=== PATIENT | male | born 1980 | race Caucasian/White ===

== ENCOUNTER 2016-08-04 09:11 | Emergency (ER) | payer SELFPAY ==
[~2016-08-04] VITALS: Ht 175.3 cm; Wt 78.0 kg
[~2016-08-04 09:11] MED LIST: BACT800T5 PO; DOXY100T PO
[2016-08-04 09:21] VITALS: BP 151/98; PULSE 112; RESP 18; TEMP 97.9; O2SAT 97
--- NOTE | 2016-08-04 09:48 | PD ---
HPI Chief Complaint: Cold / Flu Symptoms Time Seen by Provider: 09:45 Travel History International Travel<30 days: No Contact w/Intl Traveler<30days: No Traveled to known affect area: No History of Present Illness HPI Patient presents with complaints of cough, malaise and subjective fever for 2 days. He did not receive a flu shot. Denies any nausea vomiting or diarrhea. No new rashes. No sick contacts. He is a smoker but denies lung disease. PFSH Past Medical History Medical History: Denies Significant Hx Hx Anticoagulant Therapy: No Cardiovascular Problems: Yes (htn) Diabetes: Yes Patient Takes Glucophage: No Diminished Hearing: No Kidney Stones: Yes Immunizations Current: Yes Influenza Vaccination: No Social History Alcohol Use: No Tobacco Use: Yes (CIGARETTES, 1/2 PPD X 12 YEARS) Substance Use: No Allergies-Medications (Allergen,Severity, Reaction): Coded Allergies: No Known Allergies (Verified , 08/04/16) Reported Meds & Prescriptions Reported Meds & Active Scripts Active No Active Prescriptions or Reported Medications Review of Systems General / Constitutional: Positive: Fever, Chills Eyes: No: Visual changes HENT: No: Headaches Cardiovascular: No: Chest Pain or Discomfort Respiratory: Positive: Cough, No: Shortness of Breath Gastrointestinal: No: Abdominal Pain Genitourinary: No: Dysuria Musculoskeletal: No: Pain Skin: No Rash Neurologic: No: Weakness Psychiatric: No: Depression Endocrine: No: Polydipsia Hematologic/Lymphatic: No: Easy Bruising Physical Exam Narrative GENERAL: Well-nourished, well-developed patient. SKIN: Warm and dry. HEAD: Normocephalic. EYES: No scleral icterus. No injection or drainage. Left external canal and TM are visualized and normal, right external canal is erythematous edematous TM is normal NECK: Supple, trachea midline. No JVD or lymphadenopathy. CARDIOVASCULAR: Regular rate and rhythm without murmurs, gallops, or rubs. RESPIRATORY: Breath sounds coarse bilateral bases. No accessory muscle use. GASTROINTESTINAL: Abdomen soft, non-tender, nondistended. MUSCULOSKELETAL: No cyanosis, or edema. BACK: Nontender without obvious deformity. No CVA tenderness. Data Data Last Documented VS Vital Signs Date Time Temp Pulse Resp B/P Pulse Ox O2 Delivery O2 Flow Rate FiO2 08/04/16 09:21 97.9 112 18 151/98 97 Orders Influenzae A/B Antigen (2/5/17 09:48) Complete Blood Count With Diff (08/04/16 10:28) Chest, Single Ap (08/04/16 ) Ceftriaxone Inj (Rocephin Inj) (08/04/16 10:45) Azithromycin Inj (Zithromax Inj) (08/04/16 10:45) Ketorolac Inj (Toradol Inj) (08/04/16 11:00) Labs Laboratory Tests Test 08/04/16 10:34 White Blood Count 15.8 TH/MM3 Red Blood Count 5.26 MIL/MM3 Hemoglobin 14.2 GM/DL Hematocrit 41.9 % Mean Corpuscular Volume 79.7 FL Mean Corpuscular Hemoglobin 27.0 PG Mean Corpuscular Hemoglobin 33.9 % Concent Red Cell Distribution Width 13.0 % Platelet Count 176 TH/MM3 Mean Platelet Volume 9.5 FL Neutrophils (%) (Auto) 84.3 % Lymphocytes (%) (Auto) 7.9 % Monocytes (%) (Auto) 5.1 % Eosinophils (%) (Auto) 0.2 % Basophils (%) (Auto) 2.5 % Neutrophils # (Auto) 13.4 TH/MM3 Lymphocytes # (Auto) 1.2 TH/MM3 Monocytes # (Auto) 0.8 TH/MM3 Eosinophils # (Auto) 0.0 TH/MM3 Basophils # (Auto) 0.4 TH/MM3 CBC Comment DIFF FINAL Differential Comment MDM Medical Decision Making Medical Screen Exam Complete: Yes Emergency Medical Condition: Yes Differential Diagnosis COPD exacerbation, bronchitis, influenza Narrative Course Assessment and plan discussed with patient at bedside Diagnosis Primary Impression: COPD exacerbation Additional Impression: Right otitis externa Qualified Code: H60.391 - Other infective acute otitis externa of right ear Patient Instructions: General Instructions Additional Instructions: Rest fluids and Motrin, Medications as prescribed, encouraged smoking cessation , follow-up with PCP to assess progress Med/Other Pt SpecificInfo: Prescription(s) given Scripts Yerbuavo-Onwaqmsvo-CJ Otic Drops (Cortisporin HC Otic Drops)3.5-10,000-1 Mg- Units-% Soln4 Drop RIGHT EAR QID #1 BOTTLE Ref 0 Prov:Magdaleno Patrick MD 08/04/16 Prednisone (21) 10 mg tab Dose Pack 10 Mg Pack10 Mg PO DIRECTED #1 DSPK Ref 0 Prov:Magdaleno Patrick MD 08/04/16 Guaifenesin-Codeine Liq (Cheratussin AC Liq)100-10 Mg/5 Ml Syrp10 Ml PO Q4H PRN (COUGH AND COLD SYMPTOMS) #120 ML Ref 0 Do not exceed 6 doses/24 hrs. Prov:Magdaleno Patrick MD 08/04/16 Azithromycin (Zithromax)500 Mg Qhy893 Mg PO DAILY #7 TAB Ref 0 Prov:Magdaleno Patrick MD 08/04/16 Disposition: 01 DISCHARGE HOME Condition: Good Magdaleno Patrick MD Aug 04, 2016 09:47
[2016-08-04 10:38] LABS: AUTOMATED NEUTROPHIL # 13.4 TH/MM3 (1.8-7.7); BASOPHIL # 0.4 TH/MM3 (0-0.2); BASOPHIL % 2.5 % (0.0-2.0); EOSINOPHIL % 0.2 % (0.0-4.0); HEMATOCRIT 41.9 % (39.0-51.0); HEMO FLAGS DIFF FINAL; LYMPH % 7.9 % (9.0-44.0); LYMPHOCYTE # 1.2 TH/MM3 (1.0-4.8); MEAN CELL VOLUME 79.7 FL (80.0-100.0); MEAN CORPUSCULAR HGB CONC 33.9 % (32.0-36.0); MONO % 5.1 % (0.0-8.0); NEUT % 84.3 % (16.0-70.0); PLATELET COUNT 176 TH/MM3 (150-450); RED BLOOD COUNT 5.26 MIL/MM3 (4.50-5.90); WHITE BLOOD COUNT 15.8 TH/MM3 (4.0-11.0)
[2016-08-04] MEDS ORDERED: AZITHROMYCIN INJ 500 MG in SODIUM CHLOR 0.9% 250 ML INJ 250 ML IV ONE (10:45)
[2016-08-04] MEDS ORDERED: cefTRIAXone INJ 1,000 MG in SODIUM CHLORIDE 0.9% INJ 100 ML IV ONE (10:45)
[2016-08-04] MEDS ORDERED: KETOROLAC TROMETHAMINE 30 MG/ML (IVP) VIAL IV PUSH ONE (11:00)
--- NOTE | 2016-08-04 11:03 | RADHPO ---
EXAM DATE/TIME: 08/04/2016 10:50 [facility] COMPARISON: CHEST SINGLE AP, May 09, 2012, 4:05. INDICATIONS : Congestion, fever and cough. MEDICAL HISTORY : None. SURGICAL HISTORY : None. ENCOUNTER: Initial ACUITY: 1 day PAIN SCORE: 10/10 LOCATION: Bilateral chest FINDINGS: A single view of the chest demonstrates the lungs to be symmetrically aerated without evidence of mas s, infiltrate or effusion. The cardiomediastinal contours are unremarkable. Osseous structures are intact. CONCLUSION: No acute disease. Anson Soto MD on August 04, 2016 at 10:59 Board Certified Radiologist. This report was verified electronically.
[2016-08-04] MEDS ORDERED: CORT1SOL RIGHT EAR (11:30)
[2016-08-04] MEDS ORDERED: PRED10PA PO (11:30)
[2016-08-04] MEDS ORDERED: ZITH500T PO (11:30)
[2016-08-04] MEDS ORDERED: CHERSYP2 PO (11:30)
[2016-08-04 12:34] VITALS: BP 138/87; PULSE 105; RESP 18; TEMP 99.3; O2SAT 94
[2016-08-04] MEDS ORDERED: methylPREDNISolone SOD SUCC 125 MG/2 ML VIAL IV PUSH ONE (13:00)
[2016-08-04] MEDS ORDERED: SODIUM CHLORID 0.9% 500 ML INJ 500 ML IV ONE (13:00)
== END 2016-08-04 13:44 | disposition home or self-care (01) ==
LOC: PHED 09:11
DX: J44.1 Chronic obstructive pulmonary disease with (acute) exacerbation (principal); H60.91 Unspecified otitis externa, right ear; I10 Essential (primary) hypertension; E11.9 Type 2 diabetes mellitus without complications; Z87.442 Personal history of urinary calculi; F17.210 Nicotine dependence, cigarettes, uncomplicated
CPT/HCPCS: 71010; 85025; 87804; 96365; 96367; 96375; 99283; J0456; J0696; J1885; J2930; J7040; J7050

== ENCOUNTER 2016-11-04 07:56 | Emergency (ER) | payer SELFPAY ==
[2016-11-04] VITALS (7 sets, daily range): BP systolic 137–177; BP diastolic 76–118; PULSE 86–112; RESP 16–18; TEMP 98.1; O2SAT 97–99
[~2016-11-04] VITALS: Ht 175.3 cm; Wt 80.0 kg
[~2016-11-04 07:56] MED LIST changes: -BACT800T5 PO; +CHERSYP2 PO; +CORT1SOL RIGHT EAR; -DOXY100T PO; +PRED10PA PO; +ZITH500T PO
[2016-11-04] MEDS ORDERED: SODIUM CHLOR 0.9% 1000 ML INJ 1,000 ML IV SCH (08:06)
--- NOTE | 2016-11-04 08:10 | PD ---
HPI Chief Complaint: Flank/Kidney Pain Time Seen by Provider: 08:01 Travel History International Travel<30 days: No Contact w/Intl Traveler<30days: No Traveled to known affect area: No History of Present Illness HPI The patient is a 36-year-old male who presents emergency department for right flank pain. Patient is a 3 day history of intermittent right sided flank pain is located in the right upper quadrant right flank and radiates to the right lower quadrant. Initially the pain was intermittent, however, over the last 3 hours pain has been constant. The patient denies any nausea, vomiting, or postprandial symptoms. The patient does note decreased urinary output, but denies any dysuria, frequency, urgency, or hematuria. The patient does have a history of nephrolithiasis with similar symptoms in the past. The patient denies any previous abdominal surgeries. The patient denies any company chest pain, shortness of breath, cough, or fever. The patient does not currently have a primary physician. Symptoms are moderate without any alleviating or exacerbating factors. PFSH Past Medical History Hx Anticoagulant Therapy: No Cardiovascular Problems: Yes (htn) Diabetes: Yes Diminished Hearing: No Kidney Stones: Yes Immunizations Current: Yes Social History Alcohol Use: No Tobacco Use: Yes (CIGARETTES, 1/2 PPD X 12 YEARS) Substance Use: No Allergies-Medications (Allergen,Severity, Reaction): Coded Allergies: No Known Allergies (Verified , 08/04/16) Reported Meds & Prescriptions Reported Meds & Active Scripts Active Cortisporin HC Otic Drops ([place]-Dgeceizzg-EU Otic Drops) 3.5-10,000-1 Mg- Units-% Soln 4 Drop RIGHT EAR QID Prednisone (21) 10 mg tab Dose Pack (Prednisone) 10 Mg Pack 10 Mg PO DIRECTED Cheratussin AC Liq (Guaifenesin-Codeine Liq) 100-10 Mg/5 Ml Syrp 10 Ml PO Q4H PRN Do not exceed 6 doses/24 hrs. Zithromax (Azithromycin) 500 Mg Tab 500 Mg PO DAILY Review of Systems Except as stated in HPI: all other systems reviewed are Neg General / Constitutional: No: Fever Cardiovascular: No: Chest Pain or Discomfort Respiratory: No: Shortness of Breath Gastrointestinal: Positive: Abdominal Pain, No: Nausea, Vomiting, Diarrhea Genitourinary: Positive: Decreased Urinary Output, Flank Pain, No: Dysuria, Hematuria Musculoskeletal: No: Myalgias, Arthralgias Skin: No Rash Physical Exam Narrative GENERAL: Awake, alert, pleasant 36-year-old male who appears his stated age and is in no acute respiratory distress. SKIN: Focused skin assessment warm/dry. No stigmata of shingles noted over the right flank. HEAD: Atraumatic. Normocephalic. EYES: Pupils equal and round. No scleral icterus. No injection or drainage. ENT: No nasal bleeding or discharge. Mucous membranes pink and moist. NECK: Trachea midline. No JVD. CARDIOVASCULAR: Regular rate and rhythm. No murmur appreciated. RESPIRATORY: No accessory muscle use. Clear to auscultation. Breath sounds equal bilaterally. GASTROINTESTINAL: Abdomen soft, tender to palpation right upper quadrant, right lower quadrant, and right flank. Back: No CVA tenderness. MUSCULOSKELETAL: No obvious deformities. No clubbing. No cyanosis. No edema. NEUROLOGICAL: Awake and alert. No obvious cranial nerve deficits. Motor grossly within normal limits. Normal speech. PSYCHIATRIC: Appropriate mood and affect; insight and judgment normal. Data Data Last Documented VS Vital Signs Date Time Temp Pulse Resp B/P Pulse Ox O2 Delivery O2 Flow Rate FiO2 11/04/16 09:04 18 11/04/16 08:45 89 159/99 99 Room Air 11/04/16 08:05 98.1 Orders Complete Blood Count With Diff (11/04/16 08:06) Comprehensive Metabolic Panel (11/04/16 08:06) Lipase (11/04/16 08:06) Urinalysis - C+S If Indicated (11/04/16 08:06) Ct Abd/Pel W/O Iv Contrast (11/04/16 08:06) Iv Access Insert/Monitor (11/04/16 08:06) Ecg Monitoring (11/04/16 08:06) Oximetry (11/04/16 08:06) Morphine Inj (Morphine Inj) (11/04/16 08:15) Ondansetron Inj (Zofran Inj) (11/04/16 08:15) Sodium Chlor 0.9% 1000 Ml Inj (Ns 1000 M (11/04/16 08:06) Sodium Chloride 0.9% Flush (Ns Flush) (11/04/16 08:15) Ketorolac Inj (Toradol Inj) (11/04/16 08:15) Urine Culture (11/04/16 08:25) Sodium Chlor 0.9% 1000 Ml Inj (Ns 1000 M (11/04/16 09:30) Ceftriaxone Inj (Rocephin Inj) (11/04/16 09:30) Labs Laboratory Tests Test 11/04/16 11/04/16 08:15 08:25 White Blood Count 7.6 TH/MM3 Red Blood Count 5.34 MIL/MM3 Hemoglobin 14.6 GM/DL Hematocrit 42.7 % Mean Corpuscular Volume 79.9 FL Mean Corpuscular Hemoglobin 27.3 PG Mean Corpuscular Hemoglobin 34.2 % Concent Red Cell Distribution Width 14.5 % Platelet Count 195 TH/MM3 Mean Platelet Volume 9.7 FL Neutrophils (%) (Auto) 73.6 % Lymphocytes (%) (Auto) 18.9 % Monocytes (%) (Auto) 5.1 % Eosinophils (%) (Auto) 1.3 % Basophils (%) (Auto) 1.1 % Neutrophils # (Auto) 5.6 TH/MM3 Lymphocytes # (Auto) 1.4 TH/MM3 Monocytes # (Auto) 0.4 TH/MM3 Eosinophils # (Auto) 0.1 TH/MM3 Basophils # (Auto) 0.1 TH/MM3 CBC Comment DIFF FINAL Differential Comment Sodium Level 136 MEQ/L Potassium Level 3.2 MEQ/L Chloride Level 99 MEQ/L Carbon Dioxide Level 27.2 MEQ/L Anion Gap 10 MEQ/L Blood Urea Nitrogen 11 MG/DL Creatinine 1.81 MG/DL Estimat Glomerular Filtration 43 ML/MIN Rate Random Glucose 338 MG/DL Calcium Level 10.0 MG/DL Total Bilirubin 0.4 MG/DL Aspartate Amino Transf 23 U/L (AST/SGOT) Alanine Aminotransferase 20 U/L (ALT/SGPT) Alkaline Phosphatase 98 U/L Total Protein 7.1 GM/DL Albumin 3.2 GM/DL Lipase 115 U/L Urine Color LIGHT-YELLOW Urine Turbidity CLEAR Urine pH 6.5 Urine Specific [place] 1.020 Urine Protein 300 mg/dL Urine Glucose (UA) 1000 mg/dL Urine Ketones NEG mg/dL Urine Occult Blood MOD Urine Nitrite NEG Urine Bilirubin NEG Urine Urobilinogen LESS THAN 2.0 MG/DL Urine Leukocyte Esterase NEG Urine RBC 39 /hpf Urine WBC 10 /hpf Urine Bacteria RARE /hpf Microscopic Urinalysis Comment CULTURE INDICATED MDM Medical Decision Making Medical Screen Exam Complete: Yes Emergency Medical Condition: Yes Medical Record Reviewed: Yes Interpretation(s) Last Impressions Abdomen/Pelvis CT 11/04/16 0806 Signed Impressions: Service Date/Time: Friday, November 04, 2016 08:35 - CONCLUSION: Large bilateral renal stones with developing staghorn calculi. Mild dilatation of the right ureter without obstructing stone. Followup is suggested. Neal Hutchinson MD FACR Laboratory Tests Test 11/04/16 11/04/16 08:15 08:25 White Blood Count 7.6 TH/MM3 Red Blood Count 5.34 MIL/MM3 Hemoglobin 14.6 GM/DL Hematocrit 42.7 % Mean Corpuscular Volume 79.9 FL Mean Corpuscular Hemoglobin 27.3 PG Mean Corpuscular Hemoglobin 34.2 % Concent Red Cell Distribution Width 14.5 % Platelet Count 195 TH/MM3 Mean Platelet Volume 9.7 FL Neutrophils (%) (Auto) 73.6 % Lymphocytes (%) (Auto) 18.9 % Monocytes (%) (Auto) 5.1 % Eosinophils (%) (Auto) 1.3 % Basophils (%) (Auto) 1.1 % Neutrophils # (Auto) 5.6 TH/MM3 Lymphocytes # (Auto) 1.4 TH/MM3 Monocytes # (Auto) 0.4 TH/MM3 Eosinophils # (Auto) 0.1 TH/MM3 Basophils # (Auto) 0.1 TH/MM3 CBC Comment DIFF FINAL Differential Comment Sodium Level 136 MEQ/L Potassium Level 3.2 MEQ/L Chloride Level 99 MEQ/L Carbon Dioxide Level 27.2 MEQ/L Anion Gap 10 MEQ/L Blood Urea Nitrogen 11 MG/DL Creatinine 1.81 MG/DL Estimat Glomerular Filtration 43 ML/MIN Rate Random Glucose 338 MG/DL Calcium Level 10.0 MG/DL Total Bilirubin 0.4 MG/DL Aspartate Amino Transf 23 U/L (AST/SGOT) Alanine Aminotransferase 20 U/L (ALT/SGPT) Alkaline Phosphatase 98 U/L Total Protein 7.1 GM/DL Albumin 3.2 GM/DL Lipase 115 U/L Urine Color LIGHT-YELLOW Urine Turbidity CLEAR Urine pH 6.5 Urine Specific [place] 1.020 Urine Protein 300 mg/dL Urine Glucose (UA) 1000 mg/dL Urine Ketones NEG mg/dL Urine Occult Blood MOD Urine Nitrite NEG Urine Bilirubin NEG Urine Urobilinogen LESS THAN 2.0 MG/DL Urine Leukocyte Esterase NEG Urine RBC 39 /hpf Urine WBC 10 /hpf Urine Bacteria RARE /hpf Microscopic Urinalysis Comment CULTURE INDICATED Differential Diagnosis Differential diagnosis includes nephrolithiasis, pyelonephritis, cholecystitis, biliary colic, choledocholithiasis, pancreatitis, atypical diverticulitis, atypical appendicitis. Narrative Course IV was established, labs are drawn and sent, and the patient was placed on cardiac telemetry monitoring and continuous pulse oximetry monitoring. The patient was administered morphine, Toradol, Zofran, and IV fluids. Noncontrast CT of the abdomen and pelvis was ordered. White count is normal. Creatinine is mildly elevated at 1.81, old creatinine from 2010 was normal. Patient's blood glucose is elevated, previous lab work reveals elevated glucose in the past. Patient most likely has underlying diabetes. CT reveals staghorn calculi develop in the right kidney, mild dilation of the right ureter without any visible obstructing stone. UA does reveal RBCs and WBCs, therefore, patient was administered Rocephin 1 g intravenously. The patient was reevaluated at 9:39 AM. The patient's heart rate was in the 90s, however, he still had moderate pain. Therefore, patient was administered another dose of morphine. I had a discussion with the patient regarding his elevated blood glucose, he was advised in the past that he has diabetes, he is trying to control it with diet neck size. I advised the patient he will need follow-up with a physician, were for him to the [facility] for reevaluation of labs and one week. The patient may need to be placed on diabetic medications at that time and will need his creatinine followed. The patient agrees and understands. Diagnosis Primary Impression: Right flank pain Additional Impressions: UTI (urinary tract infection) Qualified Code: N39.0 - Urinary tract infection with hematuria, site unspecified Hematuria Hyperglycemia Patient Instructions: General Instructions Additional Instructions: Medications as directed. Follow-up with your primary physician or the is area clinic. You'll need repeat blood glucose and creatinine monitoring and one week. Plenty fluids to stay hydrated. Return if symptoms worsen or progress. Med/Other Pt SpecificInfo: Prescription(s) given Scripts Ciprofloxacin (Cipro)500 Mg [id number] Mg PO BID 7 Days Ref 0 Prov:Abiodun Napier MD 11/04/16 Hydrocodone-Acetaminophen ([place])5-325 mg Tab1 Tab PO Q6H PRN (PAIN) #15 TAB Ref 0 Prov:Abiodun Napier MD 11/04/16 Disposition: 01 DISCHARGE HOME Condition: Stable Abiodun Napier MD November 04, 2016 08:10
[2016-11-04] MEDS ORDERED: ONDANSETRON HCL 4 MG/2 ML VIAL IVP ONE (08:15)
[2016-11-04] MEDS ORDERED: SODIUM CHLORIDE 0.9% FLUSH 10 ML FLUSH IV FLUSH PRN (08:15)
[2016-11-04] MEDS ORDERED: KETOROLAC TROMETHAMINE 30 MG/ML (IVP) VIAL IVP ONE (08:15)
[2016-11-04] MEDS ORDERED: MORPHINE SULFATE 4 MG/ML INJ IV PUSH ONE ×2 (08:15→09:45)
[2016-11-04 08:30] LABS: AUTOMATED NEUTROPHIL # 5.6 TH/MM3 (1.8-7.7); BASOPHIL # 0.1 TH/MM3 (0-0.2); BASOPHIL % 1.1 % (0.0-2.0); EOSINOPHIL # 0.1 TH/MM3 (0-0.4); EOSINOPHIL % 1.3 % (0.0-4.0); HEMATOCRIT 42.7 % (39.0-51.0); HEMO FLAGS DIFF FINAL; LYMPH % 18.9 % (9.0-44.0); LYMPHOCYTE # 1.4 TH/MM3 (1.0-4.8); MEAN CELL VOLUME 79.9 FL (80.0-100.0); MEAN CORPUSCULAR HEMOGLOBIN 27.3 PG (27.0-34.0); MEAN CORPUSCULAR HGB CONC 34.2 % (32.0-36.0); MONO % 5.1 % (0.0-8.0); NEUT % 73.6 % (16.0-70.0); PLATELET COUNT 195 TH/MM3 (150-450); RED BLOOD COUNT 5.34 MIL/MM3 (4.50-5.90); RED CELL DISTRIBUTION WIDTH 14.5 % (11.6-17.2); WHITE BLOOD COUNT 7.6 TH/MM3 (4.0-11.0)
[2016-11-04 08:47] LABS: BACTERIA, URINE RARE /hpf; BLOOD, URINE MOD (NEG); COMMENT (UR) CULTURE INDICATED; CULTURE IF INDICATED CULTURE INDICATED; GLUCOSE,URINE 1000 mg/dL (NEG); KETONE, URINE NEG (NEG); NITRITE,URINE NEG (NEG); PH, URINE 6.5 (5.0-8.5); URINE COLOR LIGHT-YELLOW (YELLW/STRAW)
--- NOTE | 2016-11-04 08:56 | RADRPT ---
EXAM DATE/TIME: 11/04/2016 08:35 [facility] COMPARISON: CT ABDOMEN & PELVIS W/O CONTRAST, May 09, 2012, 5:00. INDICATIONS : Right flank pain for 2 days. ORAL CONTRAST: No oral contrast ingested. RADIATION DOSE: 14.24 CTDIvol (mGy) MEDICAL HISTORY : Cardiovascular disease. Hypertension. Diabetes mellitus type 2. SURGICAL HISTORY : ENCOUNTER: Initial ACUITY: 1 day PAIN SCALE: 0/10 LOCATION: Right flank TECHNIQUE: Volumetric scanning of the abdomen and pelvis was performed. Using automated exposure control and ad justment of the mA and/or kV according to patient size, radiation dose was kept as low as reasonably achievable to obtain optimal diagnostic quality images. FINDINGS: LOWER LUNGS: The visualized lower lungs are clear. LIVER: Homogeneous density without lesion. There is no dilation of the biliary tree. No calcified gallston es. SPLEEN: Normal size without lesion. Small spleenual is noted. PANCREAS: Within normal limits. KIDNEYS: There are large stones in the right kidney with made to similar stone in the renal pelvis. This is d eveloping staghorn calculus. There is mild dilatation of the right ureter without obstructing stone. Multiple calcifications are seen in the left kidney without dilatation of the left ureter. ADRENAL GLANDS: Within normal limits. VASCULAR: There is no aortic aneurysm. BOWEL/MESENTERY: The stomach, small bowel, and colon demonstrate no acute abnormality. There is no free intraperitone al air or fluid. ABDOMINAL WALL: Within normal limits. RETROPERITONEUM: There is no lymphadenopathy. BLADDER: No wall thickening or mass. REPRODUCTIVE: Within normal limits. INGUINAL: There is no lymphadenopathy or hernia. MUSCULOSKELETAL: Within normal limits for patient age. CONCLUSION: Large bilateral renal stones with developing staghorn calculi. Mild dilatation of the right ureter w ithout obstructing stone. Followup is suggested. Neal Hutchinson MD FACR on November 04, 2016 at 8:50 Board Certified Radiologist. This report was verified electronically.
[2016-11-04 09:07] LABS: ALKALINE PHOSPHATASE 98 U/L (45-117); ALT (GPT) 20 U/L (12-78); ANION GAP 10 MEQ/L (5-15); AST (GOT) 23 U/L (15-37); BICARBONATE 27.2 MEQ/L (21.0-32.0); BLOOD UREA NITROGEN 11 MG/DL (7-18); CHLORIDE 99 MEQ/L (98-107); GLOMERULAR FILTRATION RATE 43 ML/MIN (>89); POTASSIUM 3.2 MEQ/L (3.5-5.1); SODIUM (NA) 136 MEQ/L (136-145); TOTAL BILIRUBIN ADULT 0.4 MG/DL (0.2-1.0)
[2016-11-04] MEDS ORDERED: cefTRIAXone INJ 1,000 MG in SODIUM CHLORIDE 0.9% INJ 100 ML IV ONE (09:30)
[2016-11-04] MEDS ORDERED: SODIUM CHLOR 0.9% 1000 ML INJ 1,000 ML IV ONE (09:30)
[2016-11-04] MEDS ORDERED: CIPR-9 PO (09:44)
[2016-11-04] MEDS ORDERED: NORC5TAB PO (09:44)
== END 2016-11-04 10:45 | disposition home or self-care (01) ==
LOC: NEPE 07:56
DX: R10.9 Unspecified abdominal pain (principal); N39.0 Urinary tract infection, site not specified; R31.9 Hematuria, unspecified; E11.65 Type 2 diabetes mellitus with hyperglycemia; I10 Essential (primary) hypertension; F17.210 Nicotine dependence, cigarettes, uncomplicated
CPT/HCPCS: 74176; 80053; 81001; 83690; 85025; 87086; 96361; 96365; 96375; 96376; 99284; J0696; J1885; J2270; J2405; J7030